=== PATIENT | female | born 1995 | race Caucasian/White ===

== ENCOUNTER 2017-11-18 19:04 | Emergency (ER) | payer OTHER | END 2017-11-18 20:54 | disposition home or self-care (01) | LOC: FTE 19:04 → E/R 20:54 | DX: H65.03 Acute serous otitis media, bilateral (principal) | CPT/HCPCS: 99283; Z7502 ==

== ENCOUNTER 2018-01-18 12:54 | Emergency (ER) | payer OTHER | END 2018-01-18 14:15 | disposition home or self-care (01) | LOC: FTE 14:15 | DX: R59.9 Enlarged lymph nodes, unspecified (principal); B34.9 Viral infection, unspecified | CPT/HCPCS: 99283; Z7502 ==